=== PATIENT | female | born 1980 | race Caucasian/White ===

== ENCOUNTER 2018-06-29 12:39 | Outpatient (REF) | payer OTHER, SELFPAY ==
--- NOTE | 2018-06-29 09:30 | PAPFT_PTH ---
PATIENT: Kiki Smith LOC: [facility] U#:[id number] AGE/SX: 38/F ROOM: RE06/29/[address]: Angella Guzman : 1980 BED: DIS: 06/29/2018 SPEC #: [id number] RECD: 06/29/18 12:58 STATUS: KARTHIKEYAN REQ #: [id number] MURRAY: 06/29/18 09:[address]: Angella Guzman DEPT: [facility] Cytology RECD BY: Maya Arauz ENTERED: 06/29/18 12:58 SP TYPE: PAPFT OTHR DR: Salima Barnes Tissues: 1 - CX/ENDOCX FOR PAP SMEARS Procedures: PAP THIN PREP/UVM Screening HPV DNA PROBE Comments: [id number] (CHLAMYDIA/GC)
[2018-06-30 14:52] LABS: Chlamydia Result Negative; GC Result Negative; Specimen Description SEE COMMENTS
== END 2018-06-29 12:59 ==
LOC: NCHCN 12:39
PROVIDERS: PCP Nurse Practitioner Family; Visit Provider Family Medicine
DX: Z00.00 Encounter for general adult medical examination without abnormal findings (principal); Z12.4 Encounter for screening for malignant neoplasm of cervix; Z11.51 Encounter for screening for human papillomavirus (HPV); Z11.3 Encounter for screening for infections with a predominantly sexual mode of transmission
CPT/HCPCS: 87491; 87591; 88142; 87624

== ENCOUNTER 2018-07-22 13:28 | Outpatient (REF) | payer OTHER, SELFPAY | END 2018-07-22 13:48 | LOC: NCHCN 13:28 | PROVIDERS: PCP Nurse Practitioner Family; Visit Provider Family Medicine | DX: L02.411 Cutaneous abscess of right axilla (principal) | CPT/HCPCS: 87077; 87070; 87186; 87205 ==

== ENCOUNTER 2018-09-19 09:26 | Outpatient (REF) | payer OTHER, SELFPAY | END 2018-09-19 09:46 | LOC: LBN 09:26 | PROVIDERS: PCP Nurse Practitioner; Referring Provider Nurse Practitioner Family; Visit Provider Nurse Practitioner Family | DX: N76.4 Abscess of vulva (principal) | CPT/HCPCS: 87077; 87070; 87186; 87205 ==

== ENCOUNTER 2018-11-21 11:56 | Outpatient (REF) | payer OTHER, SELFPAY | END 2018-11-21 12:16 | LOC: LBN 11:56 | PROVIDERS: PCP Nurse Practitioner; Visit Provider Nurse Practitioner | DX: L02.32 Furuncle of buttock (principal) | CPT/HCPCS: 87077; 87070; 87186; 87205 ==

== ENCOUNTER 2018-12-26 16:22 | Outpatient (REF) | payer OTHER, SELFPAY | END 2018-12-26 16:42 | LOC: LBN 16:22 | PROVIDERS: PCP Nurse Practitioner; Visit Provider Nurse Practitioner | DX: R30.0 Dysuria (principal); R82.90 Unspecified abnormal findings in urine | CPT/HCPCS: 87077; 87086; 87186 ==

== ENCOUNTER 2019-01-02 18:38 | Outpatient (REF) | payer OTHER, SELFPAY | END 2019-01-02 18:58 | LOC: LBN 18:38 | PROVIDERS: PCP Nurse Practitioner; Visit Provider Nurse Practitioner Adult Health | DX: N90.7 Vulvar cyst (principal) | CPT/HCPCS: 87077; 87070; 87186 ==

== ENCOUNTER 2019-03-28 08:21 | Outpatient (CLI) | payer OTHER, SELFPAY ==
[2019-03-28 08:50] LABS: HGB 14.4 g/dL (12.0-15.5); Mean Corp. HGB Concentration 33.5 g/dL (32.0-36.0); Mean Corpuscular Hemoglobin 30.6 pg (27.0-33.0); Mean Corpuscular Volume 91.3 fL (80-95); Mean Platelet Volume 10.4 fL (8.0-11.0); Platelet Count 285 x1000/uL (130-400); RBC 4.71 m/cumm (4.00-5.20); RBC Distribution Width 13.5 % (11.7-14.6); White Blood Cell Count 5.18 k/cumm (4.4-10.8)
[2019-03-28 09:35] LABS: Total Iron Binding Capacity 397 ug/dL (250-450)
[2019-03-28 10:03] LABS: ALT 44 U/L (12-78); AST 30 U/L (15-37); Albumin 3.2 g/dL (3.4-5.0); Alkaline Phosphatase 78 U/L (46-116); Anion Gap 8.5 mmol/L (3-11); BUN 13 mg/dL (7-18); Bilirubin, Total 0.4 mg/dL (0.2-1.0); CO2 27.5 mmol/L (21.0-32.0); CREATININE 0.81 mg/dL (0.55-1.02); Calcium 8.5 mg/dL (8.5-10.1); Chloride 107 mmol/L (98-107); Ferritin 14 ng/mL (8-388); Glucose 86 mg/dL (70-100); Potassium 4.2 mmol/L (3.5-5.1); Sodium 143 mmol/L (136-145); TSH (W/Ref FT4) 2.31 uIU/mL (0.358-3.74); Total Protein 6.7 g/dL (6.4-8.2); Vitamin B12 639 pg/mL (193-986)
[2019-03-29 12:42] LABS: IgA 186 mg/dL (85-499); Interpretation SEE COMMENTS
== END 2019-03-28 08:41 ==
PROVIDERS: PCP Nurse Practitioner; Visit Provider Nurse Practitioner
DX: E66.9 Obesity, unspecified (principal); F32.9 Major depressive disorder, single episode, unspecified; F41.9 Anxiety disorder, unspecified; Z98.84 Bariatric surgery status; I10 Essential (primary) hypertension
CPT/HCPCS: 36415; 80053; 82784; 83516; 85027; 82607; 82728; 83550; 84443

== ENCOUNTER 2019-04-03 10:52 | Outpatient (REF) | payer OTHER, SELFPAY ==
[2019-04-04 13:16] LABS: Chlamydia Result Negative; GC Result Negative; Specimen Description CERVIX
== END 2019-04-03 11:12 ==
LOC: LBN 10:52
PROVIDERS: PCP Nurse Practitioner; Visit Provider Nurse Practitioner Family
DX: Z11.3 Encounter for screening for infections with a predominantly sexual mode of transmission (principal)
CPT/HCPCS: 87491; 87591

== ENCOUNTER 2019-04-20 09:39 | Outpatient (CLI) | payer OTHER, SELFPAY ==
--- NOTE | 2019-04-20 09:51 | DI.US_ITS ---
SYMPTOM/DIAGNOSIS: PELVIC PAIN WITH IUD R10.2 PELVIC ULTRASOUND: Transabdominal and transvaginal exams were performed. The uterus measures 5.9 x 3.0 x 4.2 cm. An IUD is noted within the endometrial cavity. The end of the IUD appears to be located within the cervix. The endometrial stripe is normal in thickness. No fibroids are seen. The ovaries were unable to be visualized. No free fluid is seen. IMPRESSION: Inferior portion of the IUD extends in to the cervix. The exam is otherwise unremarkable. The ovaries were not identified.
== END 2019-04-20 09:59 ==
PROVIDERS: PCP Nurse Practitioner; Visit Provider Nurse Practitioner Family
DX: R10.2 Pelvic and perineal pain (principal); Z97.5 Presence of (intrauterine) contraceptive device
CPT/HCPCS: 76830; 76856

== ENCOUNTER 2020-07-04 18:51 | Outpatient (REF) | payer OTHER, SELFPAY | END 2020-07-04 19:11 | LOC: LBN 18:51 | PROVIDERS: PCP Nurse Practitioner; Visit Provider Family Medicine | DX: L02.31 Cutaneous abscess of buttock (principal); L03.317 Cellulitis of buttock | CPT/HCPCS: 87077; 87070; 87186; 87205 ==

== ENCOUNTER 2020-08-20 03:10 | Outpatient (CLI) | payer OTHER, SELFPAY ==
[2020-08-20 14:15] LABS: Abs Immature Grans 0.01 10^3/uL (0.0-0.06); Absolute Basophil Count 0.03 10^3/uL (0.0-0.2); Absolute Eosinophil Count 0.11 10^3/uL (0.0-0.7); Absolute Lymphocyte Count 1.92 10^3/uL (1.2-3.4); Absolute Neutrophil Count 3.97 10^3/uL (1.2-6.7); Basophils % 0.5; Eosinophils % 1.7; HCT 42.5 % (36.0-46.0); HGB 13.6 g/dL (11.2-15.7); Immature Grans % 0.2; Lymphocytes % 28.9; MCH 28.7 pg (27.0-33.0); MCV 89.7 fL (80-95); MPV 10.1 fL (8.0-11.0); Neutrophils % 59.7; Nucleated RBC 0 %; Platelet Count 321 10^3/uL (130-400); RBC 4.74 10^6/uL (3.93-5.22); RDW 13.8 % (11.7-14.6); RDW-SD 45.2 fL; WBC 6.64 10^3/uL (4.4-10.8)
[2020-08-20 15:58] LABS: ALT 27 U/L (14-59); AST 20 U/L (15-37); Albumin 3.6 g/dL (3.4-5.0); Alkaline Phosphatase 75 U/L (46-116); Anion Gap 10.6 mmol/L (3-11); BUN 9 mg/dL (7-18); Bilirubin, Total 0.3 mg/dL (0.2-1.0); CO2 25.4 mmol/L (21.0-32.0); CREATININE 0.88 mg/dL (0.55-1.02); Calcium 8.8 mg/dL (8.5-10.1); Chloride 95 mmol/L (98-107); Glucose 91 mg/dL (74-106); Potassium 3.7 mmol/L (3.5-5.1); Sodium 131 mmol/L (136-145); TSH (W/Ref FT4) 2.38 uIU/mL (0.36-3.74); Total Protein 6.7 g/dL (6.4-8.2); Vitamin B12 1048 pg/mL (193-986)
[2020-08-20 21:25] LABS: Vitamin D 25 Total 76.7 ng/ml (30-100)
== END 2020-08-20 03:30 ==
PROVIDERS: Nurse Practitioner Family; PCP Nurse Practitioner; Visit Provider Nurse Practitioner
DX: R53.83 Other fatigue (principal); Z91.89 Other specified personal risk factors, not elsewhere classified; Z13.21 Encounter for screening for nutritional disorder
CPT/HCPCS: 36415; 80053; 82306; 82607; 84443; 85025

== ENCOUNTER 2020-10-04 02:56 | Outpatient (CLI) | payer BC, SELFPAY ==
[2020-10-04 16:10] LABS: Sodium 140 mmol/L (136-145)
== END 2020-10-04 03:16 ==
PROVIDERS: PCP Nurse Practitioner; Visit Provider Nurse Practitioner Family
DX: E87.1 Hypo-osmolality and hyponatremia (principal)
CPT/HCPCS: 36415; 84295

== ENCOUNTER 2021-12-04 12:04 | Outpatient (REF) | payer BC, SELFPAY ==
--- NOTE | 2021-12-04 10:00 | PAPFT_PTH ---
PATIENT: Kiki Smith LOC: [facility] U#:[id number] AGE/SX: 41/F ROOM: RE12/04/[address]: NAIN Brown : 1980 BED: DIS: 12/04/2021 SPEC #: [id number] RECD: 12/04/21 12:51 STATUS: KARTHIKEYAN REQ #: [id number] MURRAY: 12/04/21 10:[address]: Stephanie Nevarez DEPT: [facility] Cytology RECD BY: Maya Arauz ENTERED: 12/04/21 12:51 SP TYPE: PAPFT OTHR DR: Shantel Pierce APRN Tissues: 1 - CX/ENDOCX FOR PAP SMEARS Procedures: PAP THIN PREP/UVM Screening HPV DNA PROBE Comments: [id number]
== END 2021-12-04 12:05 | disposition home or self-care (01) ==
LOC: LBN 12:04
PROVIDERS: PCP Nurse Practitioner; Visit Provider Nurse Practitioner Family
DX: Z12.4 Encounter for screening for malignant neoplasm of cervix (principal); Z11.51 Encounter for screening for human papillomavirus (HPV); R87.810 Cervical high risk human papillomavirus (HPV) DNA test positive
CPT/HCPCS: 88142; 87624

== ENCOUNTER 2021-12-11 02:03 | Outpatient (CLI) | payer BC, SELFPAY ==
--- NOTE | 2021-12-11 08:30 | DI.MAMMO_ITS ---
Exam(s) MAMMO SCREENING EXAM: MAMMO SCREENING CLINICAL HISTORY: screening,z12.39 TECHNIQUE: Mammograms were interpreted according to the usual protocol including computer analysis w Visto CAD system, tomosynthesis and C-view imaging. COMPARISON: FINDINGS: The breasts are of moderate density with fairly symmetrical distribution of fibroglandular tissue. N o dominant mass or clumped microcalcification is identified in either breast. A 4 x 14 millimeter in diameter vaguely nodular radiodensity is seen in the lateral retroareolar portion of the breast on C C view only. Mass is not excluded although the findings probably just represent summation shadow. S pot compression view in CC projection and breast ultrasound suggested to exclude a mass. No other suspicious findings of period today's examination was a baseline examination. IMPRESSION: Additional mammographic views left breast and left breast ultrasound requested as described above. BI-RADS Category 0 - Assessment Incomplete: Need additional imaging evaluation Breast Density - Category B - Scattered areas of fibroglandular density
== END 2021-12-11 02:23 ==
PROVIDERS: PCP Nurse Practitioner; Visit Provider Nurse Practitioner
DX: Z12.31 Encounter for screening mammogram for malignant neoplasm of breast (principal); R92.8 Other abnormal and inconclusive findings on diagnostic imaging of breast
CPT/HCPCS: 77063; 77067

== ENCOUNTER → 2021-12-24 02:09 | Outpatient (CLI) | payer BC, SELFPAY ==
--- NOTE | 2021-12-24 10:30 | DI.MAMMO_ITS ---
Exam(s) MG MAMMO SCREEN CALL BACK UNI US BREAST LT LIMITED EXAM: MG MAMMO SCREEN CALL BACK UNI CLINICAL HISTORY: F/U ABNL MAMMO, 4 X 14 MM RADIODENSITY IN LATERAL RETROAREOLAR LT BREAST TECHNIQUE: Mammograms were interpreted according to the usual protocol including computer analysis w ith CAD system, tomosynthesis and C-view imaging. COMPARISON: FINDINGS: Additional mammographic views of the left breast and left breast ultrasound are interpreted conjuncti on. These examinations were obtained to evaluate lateral retroareolar questionable nodular radiodens ity seen on recent mammogram. Additional mammographic views fail to show a discrete mass. Breast ul trasound shows no evidence of a mass or cyst. IMPRESSION: No specific evidence of malignancy at this time. Follow-up unilateral left breast mammogram recommen ded in 6 months. BI-RADS Category 3 - 6 month - Probably Benign Finding: Recommend follow-up mammography in 6 months Breast Density - Category B - Scattered areas of fibroglandular density
== END ==
PROVIDERS: PCP Nurse Practitioner; Visit Provider Nurse Practitioner
DX: R92.8 Other abnormal and inconclusive findings on diagnostic imaging of breast (principal)
CPT/HCPCS: 76642; 77063; 77067

== ENCOUNTER 2022-09-10 02:03 | Outpatient (CLI) | payer BC, SELFPAY ==
--- NOTE | 2022-09-10 07:15 | DI.MAMMO_ITS ---
Exam(s) MAMMO DIAGNOSTIC UNI EXAM: MAMMO DIAGNOSTIC UNI CLINICAL HISTORY: 6 mo f/u, r92.8,lateral questionable nodular radiodensity. TECHNIQUE: Craniocaudal and mediolateral oblique Full Field Digital Mammography views of the breast with Computer Aided Diagnosis followed by Tomosynthesis. COMPARISON: Comparison is made with prior examinations. FINDINGS: Mammography/Tomosynthesis: Masses/Architectural Distortion: The ovoid opacity in the upper outer retroareolar region of the left breast is stable. No suspicious masses or areas of architectural distortion are seen. Microcalcifictions: No suspicious pleomorphic-type are seen. Skin Thickening/Nipple Retraction: None. IMPRESSION: 1. No definite evidence of malignancy is noted. 2. A six-month follow-up left mammogram is requested for re-evaluation. 3. Findings were discussed with the patient on the date of the examination. BI-RADS Category 3 - 6 month - Probably Benign Finding: Recommend follow-up imaging in 6 months Breast Density - Category B - Scattered areas of fibroglandular density Breast density category C or D implies that the patient has dense breast tissue. Dense breast tissue is very common and is not abnormal but dense breast tissue can make it harder to find cancer on a ma mmogram. Also, dense breast tissue may increase their breast cancer risk. This information about the result of the mammogram report was provided to the patient to raise their awareness. Use this report when you speak with the patient about their risks for breast cancer, which includes their family hist ory. At that time, you may recommend for more screening tests (Ultrasound or MRI) as they might be us eful based on their risk. A negative radiographic report should not delay biopsy if a dominant or clinically suspicious mass is present. Up to ten percent of cancers are not identified on mammography. A negative report may reinforce clinical impression. Adenosis and dense breasts may obscure an underlying neoplasm. False positive reports average 6 to 10%. Patient will receive a letter notifying them of these results.
== END 2022-09-10 02:23 ==
PROVIDERS: PCP Nurse Practitioner; Visit Provider Nurse Practitioner
DX: R92.8 Other abnormal and inconclusive findings on diagnostic imaging of breast (principal); Z12.31 Encounter for screening mammogram for malignant neoplasm of breast
CPT/HCPCS: 77061; 77065; G0279

== ENCOUNTER 2022-09-10 13:24 | Outpatient (CLI) | payer BC, SELFPAY ==
[2022-09-10 11:17] LABS: Vitamin D 25 Total 72.5 ng/mL (30-100)
[2022-09-10 11:31] LABS: ALT 24 U/L (14-59); AST 22 U/L (15-37); Albumin 3.7 g/dL (3.4-5.0); Alkaline Phosphatase 75 U/L (46-116); Anion Gap 11.2 mmol/L (3-11); BUN 10 mg/dL (7-18); Bilirubin, Total 0.5 mg/dL (0.2-1.0); CO2 23.8 mmol/L (21.0-32.0); CREATININE 0.7 mg/dL (0.55-1.02); Calcium 8.9 mg/dL (8.5-10.1); Calculated LDL 132 mg/dL (<100); Chloride 105 mmol/L (98-107); Cholesterol 201 mg/dL (<200); Estimated GFR 111.36 (mL/min/1.73m2); Ferritin 25 ng/mL (8-252); Glucose 88 mg/dL (74-106); HDL Cholesterol 52 mg/dL (40-60); Potassium 3.9 mmol/L (3.5-5.1); Sodium 140 mmol/L (136-145); TSH 1.91 uIU/mL (0.36-3.74); Total Protein 7.2 g/dL (6.4-8.2); Triglyceride 89 mg/dL (<150); Vitamin B12 955 pg/mL (193-986)
[2022-09-10 11:39] LABS: Bilirubin, Direct 0.1 mg/dL (0.0-0.2)
[2022-09-14 09:36] LABS: Insulin 10.4 uIU/mL (<29.0)
== END 2022-09-10 13:25 | disposition home or self-care (01) ==
LOC: LBO 13:28
PROVIDERS: PCP Nurse Practitioner; Visit Provider Surgery
DX: E66.01 Morbid (severe) obesity due to excess calories (principal)
CPT/HCPCS: 36415; 80053; 80061; 80076; 82306; 82607; 82728; 83525; 84443

== ENCOUNTER 2023-04-19 11:09 | Outpatient (REF) | payer BC, SELFPAY ==
--- NOTE | 2023-04-19 10:50 | PAPFT_PTH ---
PATIENT: Kiki Smith LOC: [facility] U#:[id number] AGE/SX: 42/F ROOM: RE04/19/[address]: Aviva Rosales NP : 1980 BED: DIS: 04/19/2023 SPEC #: [id number] RECD: 04/19/23 12:46 STATUS: KARTHIKEYAN RELien #: [id number] MURRAY: 04/19/23 10:[address]: Aviva Rosales NP DEPT: [facility] Cytology RECD BY: Maya Arauz ENTERED: 04/19/23 12:47 SP TYPE: PAPFT OTHR DR: Shantel Pierce APRN Tissues: 1 - CX/ENDOCX FOR PAP SMEARS Procedures: PAP THIN PREP/UVM Screening HPV DNA PROBE Comments: [id number]
== END 2023-04-19 11:10 | disposition home or self-care (01) ==
LOC: LBN 11:09
PROVIDERS: PCP Nurse Practitioner; Visit Provider Nurse Practitioner Women's Health
DX: Z12.4 Encounter for screening for malignant neoplasm of cervix (principal)
CPT/HCPCS: 88142; 87624

== ENCOUNTER 2023-07-08 16:28 | Outpatient (REF) | payer BC, SELFPAY ==
--- NOTE | 2023-07-08 15:15 | ENDO_PTH ---
PATIENT: Kiki Smith LOC: [facility] U#:[id number] AGE/SX: 43/F ROOM: RE07/08/[address]: Leni Damon DO : 1980 BED: DIS: 07/08/2023 SPEC #: [id number] RECD: 07/08/23 18:11 STATUS: KARTHIKEYAN REQ #: [id number] MURRAY: 07/08/23 15:[address]: Leni Damon DEPT: Surgical Specimen RECD BY: Maya Arauz ENTERED: 07/08/23 18:12 SP TYPE: Endo OTHR DR: Shantel Pierce APRN Tissues: 1 - ENDOCERVICAL BX/CURRETTE 2 - CERVICAL BIOPSY Procedures: GROSS AND MICRO LEVEL 4 Comments: [id number]
== END 2023-07-08 16:29 | disposition home or self-care (01) ==
LOC: LBN 16:28
PROVIDERS: PCP Nurse Practitioner; Visit Provider Obstetrics & Gynecology
DX: Z12.31 Encounter for screening mammogram for malignant neoplasm of breast (principal); R92.8 Other abnormal and inconclusive findings on diagnostic imaging of breast
CPT/HCPCS: 88305

== ENCOUNTER 2024-06-06 03:35 | Outpatient (CLI) | payer BC, SELFPAY ==
--- NOTE | 2024-06-07 10:50 | TELEFU_ITS ---
Date of service: 06/06/24 Time of Service: 01:20 Nutrition Note NOTE: Kiki referred for nutrition visit regarding weight management. She s/p partial gastrectomy 2012. She takes 5,000IU vitamin D3 daily, fiber/prebiotic supplement, multivitamin/mineral, tumeric, vitamin C, a mag/calcium/zinc supplment and AREDS eye supplement to help back of eye muscle spasms. She wernt from 405lbs to 220lbs about 6-7 years ago post surgery but maintains difficulty with keeping it off and now up to ~315lbs. Her go-to daily is deli meat and cheese for quick protein sources. She relates she is not hungry in the morning nadn 1st meal is anywhere between 12:30-2pm. She tries to follow low sugar diet to help manage chronic diarrhea. Her son was dx with celiac and chooses gluten free items to keep at home. Works for [employer] and gets out in the community with clients - goes to the gym and lifts weights, does a little cardio as well. Estimated energy needs 2692kcals (recommend 2100 for slow weight loss). Also recommend 150g protein, 210g total carbs and 70g fat as starting points for macros and can adjust from there depending on results. I affirmed exercise efforts and highlighted strength training to stave of muscle loss and help with a more efficient metabolism but also emphasized that in no way should exercise justify regular indulgences or higher kcals intake. We reviewed the benefits of eating at least 3 times per day and more ideally 5 times per day to accound for less stomach capacity and also to allow for more eating opportunities to meet her higher protein goal. I did share that the timing of her meals counts and should work towards getting a good shot of protein (ideally 30g) soon after waking to start the thermic effect of food on her metabolism. We looked at setting up repetitous cycle menus so she doesn't have to be constantly thinking about food choices or making decisions about what to eat - being proactive is essential for success. We made a goal to touch base via phone call end of may to see how progress is going - I will call her then Time Spent in Nutritional Counseling and Treatment: 45 min
== END 2024-06-06 03:36 | disposition home or self-care (01) ==
PROVIDERS: PCP Nurse Practitioner; Visit Provider Dietitian, Registered
DX: Z71.3 Dietary counseling and surveillance (principal)
CPT/HCPCS: 00123; 97802

== ENCOUNTER 2024-07-21 09:56 | Outpatient (REF) | payer BC, SELFPAY ==
--- NOTE | 2024-07-21 09:30 | PAPFT_PTH ---
PATIENT: Kiki Smith LOC: [facility] U#:[id number] AGE/SX: 44/F ROOM: RE07/21/[address]: Leni Damon DO : 1980 BED: DIS: 07/21/2024 SPEC #: [id number] RECD: 07/21/24 13:17 STATUS: KARTHIKEYAN REQ #: [id number] MURRAY: 07/21/24 09:[address]: Leni Damon DEPT: [facility] Cytology RECD BY: Maya Arauz ENTERED: 07/21/24 13:17 SP TYPE: PAPFT OTHR DR: Shantel Pierce APRN Tissues: 1 - CX/ENDOCX FOR PAP SMEARS Procedures: PAP THIN PREP/UVM Screening HPV DNA PROBE Comments: [id number] (HPV 16 & 18/45)
== END 2024-07-21 09:57 | disposition home or self-care (01) ==
LOC: LBN 09:56
PROVIDERS: PCP Nurse Practitioner; Visit Provider Obstetrics & Gynecology
DX: Z12.39 Encounter for other screening for malignant neoplasm of breast (principal); Z01.419 Encounter for gynecological examination (general) (routine) without abnormal findings; E66.01 Morbid (severe) obesity due to excess calories; Z68.43 Body mass index [BMI] 50.0-59.9, adult
CPT/HCPCS: 88142; 87624

== ENCOUNTER 2024-10-04 18:20 | Outpatient (CLI) | payer BC, SELFPAY ==
--- NOTE | 2024-10-04 15:15 | DI.RAD_ITS ---
Exam(s) XR ANKLE RT COMPLETE EXAM: XR ANKLE RT COMPLETE CLINICAL HISTORY: M76.60 Achilles tendinitis,M25.571 Pain, rule out stress fracture. TECHNIQUE: 2D digital imaging was performed. COMPARISON: No exams were available for comparison FINDINGS: 3 views There is no evidence of acute fracture or widening the ankle mortise. A corticated calcific density is noted immediately subjacent to the lateral malleolus which is probably I and there from prior jovan te fracture or ununited apophysis. There is a defect on the lateral aspect of the talar dome, possibly osteochondral defect or degenerat tiffany. Medial aspect talar dome appears unremarkable. Sclerotic density noted at the level neck of th e talus. No distinct fracture line at this level. There is a moderate size inferior calcaneal spur and enthesophyte on the posterior calcaneus Achilles insertion site. In addition there is thickening of the insertional aspect of the Achilles tendon an d there is a posterior calcaneus pump hump evident. IMPRESSION: There is a defect on the lateral aspect of the talar dome, possibly degenerative but cannot exclude o steochondral defect at this level. Findings in the posterior osseous calcaneus/Achilles tendon described above indicate possibility of H aglund's syndrome. DATA REPOSITORY: RADIATION DOSE DELIVERED:
--- NOTE | 2024-10-04 15:15 | DI.RAD_ITS ---
Exam(s) XR FOOT RT COMPLETE EXAM: XR FOOT RT COMPLETE CLINICAL HISTORY: M79.671 Pain in RT foot, rule out stress fx. TECHNIQUE: 2D digital imaging was performed. COMPARISON: No exams were available for comparison FINDINGS: 3 views There is no oblique linear hyperdensity in the neck of the talus, possibly indicating presence of a s tress reaction fracture. No other similar areas in the foot. No metatarsal fractures nor diastasis of the Lisfranc joint. Great toe metatarsophalangeal joint appears unremarkable. Moderate size infe rior calcaneal spur is noted. Posterior calcaneus pump hump noted. Also enthesophyte at the posteri or calcaneus insertional aspect of the Achilles tendon. IMPRESSION: Possible subtle evidence of stress fracture at the level the neck of the talus Radiographic findings in the posterior calcaneus which are suspicious for Kieran's syndrome. DATA REPOSITORY: RADIATION DOSE DELIVERED:
== END 2024-10-04 18:40 ==
LOC: DI 18:21
PROVIDERS: PCP Nurse Practitioner; Visit Provider Nurse Practitioner Family
DX: M25.571 Pain in right ankle and joints of right foot
CPT/HCPCS: 73610; 73630

== ENCOUNTER 2024-11-03 15:44 | Outpatient (REF) | payer BC, SELFPAY ==
--- NOTE | 2024-11-03 15:00 | ENDO_PTH ---
PATIENT: Kiki Smith LOC: [facility] U#:[id number] AGE/SX: 44/F ROOM: RE11/03/[address]: Margie Flores MD : 1980 BED: DIS: 11/03/2024 SPEC #: [id number] RECD: 11/03/24 17:45 STATUS: KARTHIKEYAN REQ #: [id number] MURRAY: 11/03/24 15:[address]: Margie Flores DEPT: Surgical Specimen RECD BY: Maya Arauz ENTERED: 11/03/24 17:46 SP TYPE: Endo OTHR DR: Shantel Pierce APRN Tissues: 1 - ENDOCERVICAL BX/CURRETTE Procedures: GROSS AND MICRO LEVEL 4 Comments: [id number]
== END 2024-11-03 15:45 | disposition home or self-care (01) ==
LOC: LBN 15:44
PROVIDERS: PCP Nurse Practitioner; Visit Provider Obstetrics & Gynecology
DX: R87.618 Other abnormal cytological findings on specimens from cervix uteri (principal)
CPT/HCPCS: 88305

== ENCOUNTER 2025-01-08 07:33 | Emergency (ER) | payer BC, SELFPAY ==
[2025-01-08 07:39] VITALS: BP 156/70; PULSE 90; RESP 16; TEMP 36.4; O2SAT 99
--- NOTE | 2025-01-08 07:45 | DI.RAD_ITS ---
Exam(s) XR SHOULDER RT COMPLETE 2+V EXAM: XR SHOULDER RT COMPLETE 2+V CLINICAL HISTORY: pain. TECHNIQUE: 2D digital imaging was performed. COMPARISON: No exams were available for comparison FINDINGS: Five views No evidence of fracture or dislocation or abnormal soft tissue calcifications. Subacromial space hei ght is normal. Glenohumeral and AC joints appear unremarkable. Bone density normal. No osseous les ions. IMPRESSION: No acute osseous findings in the right shoulder. DATA REPOSITORY: RADIATION DOSE DELIVERED:
--- NOTE | 2025-01-08 07:59 | W.ED.GENAD ---
Discharge Plan Disposition Patient Disposition: Home Condition: Stable Discharge Details Clinical Impression: Right shoulder strain Primary Care Provider: Shantel Pierce ED Provider: Haong Rosales Home Meds and New Rx's Prescriptions: New cyclobenzaprine 10 mg tablet 10 mg PO TID PRNQty: 20 0RF Continued chlorhexidine gluconate [Antiseptic Skin Clnsr(chlorhe)] 4 % liquid 1 applic TP .Twice weekly PRN (Reason: folliculitis prevention) Qty: 946 0RF Rx Instructions: Rinse skin w/ water, then apply minimum amount needed to cover skin.Wash gently,rinse nystatin 100,000 unit/gram powder 1 applic topical TID Qty: 60 4RF Ginko PO DAILY cholecalciferol (vitamin D3) 125 mcg (5,000 unit) capsule 125 mcg PO DAILY Patient Comments: Taking 6,000 units daily - seasonal use (in winter) PreserVision AREDS 2,148 mcg-113 mg-45 mg-17.4mg tablet 2 tab PO BID Rx Instructions: administer with AM and PM meals docusate sodium [Stool Softener] 100 mg capsule 200 mg PO DAILY acidophilus-pectin, citrus [Acidophilus Probiotic] 100 million cell-10 mg capsule 1 cap PO QAM turmeric 400 mg capsule 400 mg PO DAILY fiber prebiotic 2 wafer PO QPM vitamin c 1,600 mg PO .qd dfpnjtn-djppzvdbw-wfwc Tablet PO clotrimazole-betamethasone 1-0.05 % cream 1 applic TP BID Qty: 45 3RF ketoconazole 2 % cream 1 applic topical BID Qty: 60 1RF Gcpcxztq-Fbctws-CQS with vit D 1 EACH tablet 1 ea PO BID multivit with min-folic acid [Women's Multivitamin Gummies] 200 MCG tablet,chewable 200 mcg PO mupirocin 2 % ointment See Rx Instructions .ROUTE .COMPLEX Qty: 22 1RF Dose Instruction: APPLY TOPICALLY (0N LEFT LABIA) THREE TIMES A DAY NEEDED FOR SKIN INFECTION FOR TWO WEEKS Rx Instructions: APPLY TOPICALLY (0N LEFT LABIA) THREE TIMES A DAY NEEDED FOR SKIN INFECTION FOR TWO WEEKS nystatin [Nyamyc] 100,000 unit/gram powder See Rx Instructions .ROUTE .COMPLEX Qty: 30 1RF Dose Instruction: APPLY TOPICALLY TO PERENIUM TWICE A DAY, NEEDED FOR ITCHING. Rx Instructions: APPLY TOPICALLY TO PERENIUM TWICE A DAY, NEEDED FOR ITCHING. medroxyprogesterone 150 mg/mL syringe See Rx Instructions .ROUTE .COMPLEX Qty: 1 3RF Dose Instruction: INJECT 150MG INTRAMUSCULARLY EVERY 3 MONTHS Rx Instructions: INJECT 150MG INTRAMUSCULARLY EVERY 3 MONTHS vitamin B complex 1 EACH capsule 1 cap PO DAILY Discharge Instructions Additional Instructions: Your x-ray did not show any concerning findings at this time. You can use the sling as needed for comfort, if you are using the sling make sure you are taking your arm out several times a day to range her joints. If not improving within a week follow-up with your primary care provider or express care. You can take 1000 mg of acetaminophen and 600 mg of ibuprofen every 6 hours as needed. If you feel more ill or have new symptoms such as high fevers return to the emergency department for reevaluation. Stand Alone Forms: Work Release HPI General Mode of arrival: ambulatory. Date/Time Provider Initiated Documentation: 01/08/25 07:40. Limitations to Documentation: no limitations. Information obtained by: patient. History of Present Illness 44 year old F presents to the emergency department with the chief complaint of right shoulder pain, described as moderate, Quality is described as aching, and is localized to the right and upper extremity. Patient reports no radiation. Patient started experiencing this week(s) (1) and it has been constant. No relieving factors improve symptom(s), No exacerbating factors reported . Patient notes no other symptoms.. Patient did receive the following treatments prior to arrival, none Related Data Home Medications ?Medication ?Instructions ?Recorded ?Confirmed glucosamine 750 nv-jidroj-sae 2-C 1 ea PO BID 03/14/14 12/06/24 30 mg-D3 1,000 unit-armaan 1 mg tablet (Mnplhlxdzog-Gubujqbuyip-QNC + vitD) vitamin B complex 1 cap PO DAILY 07/16/14 12/06/24 multivitamin with minerals-folic 200 mcg PO 05/06/15 12/06/24 acid 200 mcg chewable tablet (Women's Multivitamin Gummies) acidophilus 100 million 1 cap PO QAM 04/14/19 12/06/24 cell-pectin, citrus 10 mg capsule (Acidophilus Probiotic) chlorhexidine gluconate 4 % 1 applic topical .Twice weekly PRN 08/15/20 12/06/24 topical liquid (Antiseptic Skin folliculitis prevention #946 mL Cleanser (chlorhexidine)) docusate sodium 100 mg capsule 200 mg PO DAILY 05/06/21 12/06/24 (Stool Softener) fiber prebiotic 2 wafer PO QPM 05/06/21 12/06/24 turmeric 400 mg capsule 400 mg PO DAILY 05/06/21 12/06/24 vitamin c 1,600 mg PO .qd 05/08/21 12/06/24 nystatin 100,000 unit/gram topical 1 applic topical TID #60 grams 05/29/21 12/06/24 powder kvvauql-mrtejadqe-achb tablet tab PO 08/28/21 12/06/24 Ginko PO DAILY 12/04/21 12/06/24 cholecalciferol (vitamin D3) 125 125 mcg PO DAILY 12/18/22 12/06/24 mcg (5,000 unit) capsule clotrimazole-betamethasone 1 1 applic topical BID abdominal 03/11/23 12/06/24 %-0.05 % topical cream skin fold rash #45 grams mupirocin 2 % topical ointment See Rx Instructions .Route 06/01/23 12/06/24 .COMPLEX #22 grams ketoconazole 2 % topical cream 1 applic topical BID #60 grams 06/09/23 12/06/24 nystatin 100,000 unit/gram topical See Rx Instructions .Route 07/13/23 12/06/24 powder (Nyamyc) .COMPLEX #30 grams medroxyprogesterone 150 mg/mL See Rx Instructions .Route 12/14/23 12/06/24 intramuscular syringe .COMPLEX #1 mL vitamins A,C,R-cltv-emmesj 2,148 2 tab PO BID 08/17/24 12/06/24 mcg-113 mg-45 mg-17.4 mg tablet (PreserVision AREDS) cyclobenzaprine 10 mg tablet 10 mg PO TID PRN #20 tabs 01/08/25 Previous Rx's ?Medication ?Instructions ?Recorded chlorhexidine gluconate 4 % 1 applic topical .Twice weekly PRN 08/15/20 topical liquid (Antiseptic Skin folliculitis prevention #946 mL Cleanser (chlorhexidine)) nystatin 100,000 unit/gram topical 1 applic topical TID #60 grams 05/29/21 powder clotrimazole-betamethasone 1 1 applic topical BID abdominal 03/11/23 %-0.05 % topical cream skin fold rash #45 grams mupirocin 2 % topical ointment See Rx Instructions .Route 06/01/23 .COMPLEX #22 grams ketoconazole 2 % topical cream 1 applic topical BID #60 grams 06/09/23 nystatin 100,000 unit/gram topical See Rx Instructions .Route 07/13/23 powder ([facility]) .COMPLEX #30 grams medroxyprogesterone 150 mg/mL See Rx Instructions .Route 12/14/23 intramuscular syringe .COMPLEX #1 mL cyclobenzaprine 10 mg tablet 10 mg PO TID PRN #20 tabs 01/08/25 Allergies Allergy/AdvReac Type Severity Reaction Status Date / Time Influenza Virus Vaccines Allergy Stomach Verified 11/27/24 16:23 pain, vomiting, diarrhea acetaminophen (From Percocet) AdvReac vomiting, Verified 11/27/24 16:23 diarrhea, stomach cramps, headache morphine AdvReac vomiting, Verified 11/27/24 16:23 diarrhea, stomach cramps, headache oxycodone (From Percocet) AdvReac vomiting, Verified 11/27/24 16:23 diarrhea, stomach cramps, headache General Stated Complaint: Orthopedic PRASANTH: 4 Review of Systems All systems reviewed & are unremarkable except as noted in HPI and below Constitutional Constitutional: Denies chills, Denies fever(s) and Denies weakness Cardiovascular Cardiovascular: Denies chest pain and Denies dyspnea Respiratory Respiratory: Denies cough and Denies dyspnea Gastrointestinal Gastrointestinal: Denies abdominal pain, Denies nausea and Denies vomiting Musculoskeletal Musculoskeletal: Reports arthralgias Neurologic Neurologic: Denies weakness Exam Const General: no acute distress Orientation: alert [facility] Head: normal to inspection Ears: external ears normal General nose exam: external nose normal Mouth: moist mucous membranes Eyes General: appearance normal, both eyes and all related structures Neck Neck: normal visual inspection Resp Effort & Inspection: normal respiratory effort and able to speak in complete sentences Cardio Rate: regular rate Skin General skin exam: no rashes or lesions noted Neuro General: patient alert and patient oriented x3 Extrem General: capillary refill normal and no joint enlargement Psych Mental Status: mental status grossly normal Course Vital Signs Vital signs: Vital Signs Temperature 36.4 C 01/08/25 07:39 Pulse 90 01/08/25 07:39 Respiratory Rate 16 01/08/25 07:39 Blood Pressure 156/70 H 01/08/25 07:39 Pulse Oximetry 99 01/08/25 07:39 Temperature 36.4 C 01/08/25 07:39 Temperature Source Oral 01/08/25 07:39 Pulse 90 01/08/25 07:39 Respiratory Rate 16 01/08/25 07:39 Blood Pressure 156/70 H 01/08/25 07:39 Blood Pressure Position Sitting 01/08/25 07:39 Pulse Oximetry 99 01/08/25 07:39 Oxygen Delivery Method Room Air 01/08/25 07:39 Oxygen Flow Rate 0 01/08/25 07:39 Medical Decision Making 44-year-old female comes in with right shoulder pain. She says it started a week ago after starting a new job where she is moving a lot of heavy objects. The pain is continued and worsening as she is continue to use her shoulder. She denies any falls, trauma, she has any fevers or chills and denies any drug use. She is stable on arrival, she has reproducible tenderness to the anterior and lateral shoulder without visible palpable deformity. There is no warmth or erythema. She is limited range of motion due to pain. She has intact distal sensation and pulses. I suspect strain versus overuse versus possibly bursitis. No findings on exam or history to suggest septic joint. Will obtain x-rays though my suspicion for fracture is very low. Patient feels better after Toradol and x-ray my read shows no acute findings. I suspect sprain and overuse injury. I will provide a sling to use for comfort as needed advised to follow-up with her PCP or express care if not improving within a week. Return precautions given Differential Diagnosis Differential Diagnosis: Sprain, strain, bursitis, muscle spasm Quality:SDOH Health Related Social Needs: Health related social needs feeling lonely/isolated (Z60.8) PFSH All Active Problems (Updated 01/08/25 @ 08:56 by Hoang Rosales MD) Right shoulder strain (Acute) Kieran deformity of right heel (Acute) Achilles tendon contracture, right (Acute) Insertional tendinopathy of right Achilles tendon (Acute) Ankle pain, right (Acute) Achilles tendon pain (Acute) Foot pain, right (Acute) Other problems related to housing and economic circumstances (Acute) Relationship dysfunction (Acute) Hemorrhoid (Acute) Class 3 severe obesity with serious comorbidity and body mass index (BMI) of 50.0 to 59.9 in adult (Acute) Groin abscess (Acute) Tinea cruris (Acute) Intertrigo (Acute) Lower leg injury (Acute) Venous insufficiency (Acute) Lymphedema (Acute) Varicose veins of bilateral lower extremities with pain (Acute) Cellulitis and abscess of buttock (Acute) Depression (Chronic) Pilar cyst (Acute) 04/03/19 Dr Guy 4 pilar cysts of the scalp Medical History High risk HPV infection Jun 2024: NIL/+HPV18 -> colp: March 2023: ASCUS/HPV+ -> colpo: negative biopsy/ECC. November 2021: NIL/HPV+ Jun 2018: NIL/neg HPV November 2016: NIL/+HPV 2011 & 2014: negative Uses Depo-Provera as primary control method Hx of continuous active OCPs 03/2019. Mirena IUD. Too uncomfortable. 04/2019. IUD removed. DepoProvera q3mo initiated. Vitreous syneresis of both eyes (~11/2022) Conjunctival cyst of left eye (~11/2022) Hx of subconjunctival hemorrhage 12/02/22 [facility] Abscess of left genital labia Recurring. No gland involvement per pt report based on d/w metal inspector. Lower extremity pain, bilateral Fall Post-COVID syndrome 03/03/22 [facility] Infectious Disease Left femoral vein DVT (~08/2021) prophalaxis shoud be considered for major invasive procedures, [facility] note dated 03/11/22 Superficial thrombosis of leg (~04/2021) LLE Recurrent candidiasis of vagina When on antibiotics Tinnitus Anxiety MRSA (methicillin resistant Staphylococcus aureus) infection Surgical History History of partial gastrectomy (~04/2013) Bariatric surgery status S/P adenoidectomy (~1988) gastric sleeve (~04/2013) Tonsillectomy (~1988) Family History Mother Multiple sclerosis at 34 Lupus Son Celiac disease Paternal Grandfather Prostate cancer Bladder cancer Thyroid disorder Social History Smoking/Tobacco Use Status: Former Tobacco Use Tobacco: How many years used: 2 Smoking risk assessment performed?: Yes Alcohol Intake: current Alcohol Intake frequency: holidays/special occasions only Drug use: Occasionally Substance use type: marijuana Counseling given: No Adopted: No Caregiver/Support person: No Household members: spouse Housing: house Number of Children: 1 Communication Needs: None Education Level: other Details: makes specialty cakes. Do you need help understanding health information?: Never current occupation: looking for job Pets and animals: Yes Pets and animals: cat(s) and dog(s) Sexually active: Yes Do you think of yourself as: straight/heterosexual Current gender identity: female What is your relationship status?: How often do you talk on the phone with friends or family?: three or more times per week How often do you get together with friends or relatives?: once per week Do you belong to any clubs or organized social groups?: no Panel score (0-1 are the most socially isolated patients): 2 What type of physical activity do you participate in: walking Duration: 30-45 minutes/day Frequency: other Details: just started going to [employer] Agree to transfusion: No Seatbelt use: always Drive intox 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
[2025-01-08] MEDS: Ketorolac 15 MG/ML VIAL IM (08:04)
[2025-01-08 09:08] VITALS: BP 185/95; PULSE 80; RESP 16; O2SAT 100
== END 2025-01-08 09:09 | disposition home or self-care (01) ==
PROVIDERS: Emergency Provider Emergency Medicine; PCP Nurse Practitioner
DX: S46.911A Strain of unspecified muscle, fascia and tendon at shoulder and upper arm level, right arm, initial encounter (principal); X50.0XXA Overexertion from strenuous movement or load, initial encounter; Y93.89 Activity, other specified; Y92.89 Other specified places as the place of occurrence of the external cause; Z87.891 Personal history of nicotine dependence; Z98.84 Bariatric surgery status
CPT/HCPCS: 96372; 99284; 73030; 99283; J1885

== ENCOUNTER 2025-01-22 00:05 | Outpatient (CLI) | payer BC, SELFPAY ==
--- NOTE | 2025-01-22 06:45 | DI.MAMMO_ITS ---
Exam(s) MAMMO SCREENING EXAM: MAMMO SCREENING CLINICAL HISTORY: screening,Z12.39 TECHNIQUE: Mammograms were interpreted according to the usual protocol including computer analysis w [employer] CAD system, tomosynthesis and C-view imaging. COMPARISON: 2021 FINDINGS: The breasts are composed of mainly fatty density , Breast Density category A. No suspicious masses or suspicious microcalcifications are seen. Stable ovoid density in the lateral left breast. No skin thickening or abnormal axillary lymph nodes are seen. There has been no significant change from prior exams. IMPRESSION: BI-RADS Category 2 - Benign Findings Yearly screening mammography is recommended. Breast Density - Category A, fatty density. A negative radiographic report should not delay biopsy if a dominant or clinically suspicious mass is present. Up to ten percent of cancers are not identified on mammography. A negative report may reinforce clinical impression. Adenosis and dense breasts may obscure an underlying neoplasm. False positive reports average 6 to 10%. Patient will receive a letter notifying them of these results.
== END 2025-01-22 00:25 ==
LOC: DI 00:05
PROVIDERS: PCP Nurse Practitioner; Visit Provider Nurse Practitioner
DX: Z12.31 Encounter for screening mammogram for malignant neoplasm of breast (principal); R92.313 Mammographic fatty tissue density, bilateral breasts; D24.2 Benign neoplasm of left breast
CPT/HCPCS: 77063; 77067

== ENCOUNTER 2025-01-25 03:38 | Outpatient (CLI) | payer BC, SELFPAY ==
[2025-01-25 10:47] LABS: Hemoglobin A1C 5.1 % (<5.7)
[2025-01-25 10:59] LABS: ALT 26 U/L (14-59); AST 21 U/L (15-37); Albumin 3.8 g/dL (3.4-5.0); Alkaline Phosphatase 73 U/L (46-116); Anion Gap 9.8 mmol/L (3-11); BUN 12 mg/dL (7-18); Bilirubin, Total 0.5 mg/dL (0.2-1.0); CO2 26.2 mmol/L (21.0-32.0); CREATININE 0.7 mg/dL (0.55-1.02); Calculated LDL 152 mg/dL (<100); Chloride 108 mmol/L (98-107); Cholesterol 222 mg/dL (<200); Estimated GFR 109.98 (mL/min/1.73m2); Glucose 92 mg/dL (74-106); HDL Cholesterol 56 mg/dL (>or=50); Potassium 4.1 mmol/L (3.5-5.1); Sodium 144 mmol/L (136-145); Total Protein 7.1 g/dL (6.4-8.2); Triglyceride 73 mg/dL (<150)
== END 2025-01-25 03:39 | disposition home or self-care (01) ==
LOC: LBO 03:39
PROVIDERS: PCP Nurse Practitioner; Visit Provider Nurse Practitioner
DX: Z13.220 Encounter for screening for lipoid disorders (principal); E66.01 Morbid (severe) obesity due to excess calories; Z68.43 Body mass index [BMI] 50.0-59.9, adult
CPT/HCPCS: 36415; 80053; 80061; 83036

== ENCOUNTER 2025-04-03 03:11 | Outpatient (CLI) | payer BC, SELFPAY ==
[2025-04-03 11:09] LABS: Iron 125 ug/dL (50-170); Total Iron Binding Capacity 281 ug/dL (250-450); Transferrin Sat 44 % (15-50)
[2025-04-03 11:22] LABS: Ferritin 41 ng/mL (8-252)
== END 2025-04-03 03:12 | disposition home or self-care (01) ==
LOC: LBO 03:11
PROVIDERS: PCP Nurse Practitioner Family; Referring Provider Nurse Practitioner Family; Visit Provider Nurse Practitioner Family
DX: Z90.3 Acquired absence of stomach [part of] (principal)
CPT/HCPCS: 36415; 82728; 83540; 83550